=== PATIENT | male | born 1975 | race African-American/Black ===

== ENCOUNTER 2016-10-30 14:54 | Emergency (ER) | payer MEDICAID, OTHER ==
[~2016-10-30] VITALS: Ht 180.3 cm; Wt 145.1 kg
[2016-10-30 15:13] VITALS: BP 146/94
[2016-10-30] MEDS ORDERED: IBUPROFEN 800 MG TAB PO ONE (16:30)
== END 2016-10-30 16:22 | disposition home or self-care (01) ==
LOC: EDBD 14:54 → ER 14:54
DX: S60.031A Contusion of right middle finger without damage to nail, initial encounter (principal); Z88.0 Allergy status to penicillin; F17.210 Nicotine dependence, cigarettes, uncomplicated; W23.0XXA Caught, crushed, jammed, or pinched between moving objects, initial encounter; Y93.89 Activity, other specified; Y92.89 Other specified places as the place of occurrence of the external cause; Y99.8 Other external cause status
CPT/HCPCS: 73130